=== PATIENT | female | born 1995 | race Caucasian/White ===

== ENCOUNTER 2019-03-09 10:02 | Emergency (ER) | payer OTHER ==
[2019-03-09] MEDS: KETOROLAC 30 MG INJ IM (11:01)
== END 2019-03-09 11:51 | disposition home or self-care (01) ==
LOC: FTE 10:02
DX: S99.912A Unspecified injury of left ankle, initial encounter (principal); W10.9XXA Fall (on) (from) unspecified stairs and steps, initial encounter; Y92.9 Unspecified place or not applicable
CPT/HCPCS: 73590; 73610; 81025; 96372; 99284-25

== ENCOUNTER → 2019-06-29 | Emergency (ER) | payer OTHER ==
[2019-06-29 12:51] LABS: URINE BLOOD (Dip) POC 3+ (NEGATIVE); URINE GLUCOSE (Dip) POC Negative (NEGATIVE); URINE KETONES (Dip) POC 1+ (NEGATIVE); URINE LEUKOCYTE EST (Dip) POC Negative (NEGATIVE); URINE NITRITE (Dip) POC Negative (NEGATIVE); URINE TOTAL PROTEIN POC 2+ (NEGATIVE)
[2019-06-29 12:51] LABS: URINE PH (Dip) POC 5.5 (5.0-8.5)
== END | disposition home or self-care (01) ==
LOC: FTE 11:54
DX: O46.8X1 Other antepartum hemorrhage, first trimester (principal); Z3A.01 Less than 8 weeks gestation of pregnancy
CPT/HCPCS: 76801; 76817; 81003; 99284-25